=== PATIENT | male | born 1960 | race Caucasian/White ===

== ENCOUNTER 2018-05-01 09:30 | Inpatient (IN) ==
[2018-05-01] MEDS ORDERED: SODIUM CHLORIDE 0.9% 1,000 ML IV STA (10:05)
[2018-05-01] MEDS ORDERED: ONDANSETRON 4 MG/2 ML VIAL IV STA (10:05)
[2018-05-01 10:52] LABS: Basophils % 0.4 % (0.0-0.8); Eosinophils # 0.4 10*3/uL (0.0-0.87); Eosinophils % 4.6 % (0.00-10.9); Hematocrit 44.5 VOL% (42.0-52.0); Hemoglobin 14.7 GM/DL (14.0-18.0); Immature Granulocytes % 0.3 %; Immature Granulocytes Absolute 0.03 #; Lymphocytes # 2.3 10*3/uL (1.4-4.0); Lymphocytes % 23.6 % (21.2-54.2); Mean Corpuscular Hemoglobin 30 PG (27-34); Mean Corpuscular Volume 91.2 FL (87-102); Mean Platelet Volume 10.4 FL (9.6-12.0); Monocytes # 0.5 10*3/uL (0.11-0.8); Monocytes % 4.7 % (1.7-12.7); Neutrophils # 6.3 10*3/uL (1.4-7.4); Neutrophils % 66.4 % (38.7-73.9); Platelet Count 222 T/CUMM (130-400); Red Blood Count 4.88 MC/CUMM (3.8-5.5); White Blood Count 9.5 T/CUMM (4-12)
[2018-05-01 11:04] LABS: PT Patient Result 10.7 SECS; Partial Thromboplastin Time 27.5 SECS (0-40)
[2018-05-01 11:12] LABS: Alanine Aminotransferase 25 U/L (16-61); Albumin 3.5 G/DL (3.4-5.0); Alkaline Phosphatase 77 U/L (45-117); Aspartate Amino Transferase 24 U/L (0-37); Blood Urea Nitrogen 12 MG/DL (7-18); Glucose 139 MG/DL (74-106); Osmolality,Calculated 274.8 MOS/KG (273-304); Potassium 3.2 MMOL/L (3.5-5.1); Sodium 137 MMOL/L (136-145); Total Protein 7.1 G/DL (6.4-8.3)
[2018-05-01] MEDS ORDERED: POTASSIUM CHLORIDE 20 MEQ TABLET PO STA (11:28)
[2018-05-01] MEDS ORDERED: ASPIRIN CHEW 81 MG TABLET PO STA (11:40)
[2018-05-01] MEDS ORDERED: ACETAMINOPHEN 325 MG TABLET PO PRN (12:34)
[2018-05-01] MEDS ORDERED: ONDANSETRON 4 MG/2 ML VIAL IV PRN (12:34)
[2018-05-01] MEDS ORDERED: LABETALOL 20 MG/4 ML SYRINGE IV PRN (12:39)
[2018-05-01] MEDS ORDERED: ENOXAPARIN 30 MG/0.3 ML SYRINGE SUBCUT SCH (13:00)
[2018-05-01] MEDS ORDERED: PNEUMOCOCCAL VACCINE (23 VALENT) 0.5 ML VIAL IM ONE (13:29)
[2018-05-01 13:47] LABS: Cholesterol 114 MG/DL (50-200); HDL Cholesterol 23 MG/DL (40-60); Risk Ratio 4.96; Triglycerides 209 MG/DL (2-150); VLDL CHOLESTEROL 41.8 MG/DL
[2018-05-01] MEDS: POTASSIUM CHLORIDE 20 MEQ TABLET PO SCH ×2 (14:19→17:39)
[2018-05-01] MEDS: SODIUM CHLORIDE 0.9% 1,000 ML IV SCH ×2 (14:19→22:00)
[2018-05-01 15:45] LABS: Barbiturates Screen,Urine Negative (Negative); Benzodiazepines Screen,Urine Negative (Negative); Cannabinoid Screen,Urine Negative (Negative); Opiate Screen,Urine Negative (Negative); Phencyclidine Screen,Urine Negative (Negative)
[2018-05-01] MEDS ORDERED: ZALEPLON 5 MG CAPSULE PO PRN (20:13)
[2018-05-02] MEDS: SODIUM CHLORIDE 0.9% 1,000 ML IV SCH (05:57)
[2018-05-02 05:59] LABS: Basophils % 0.4 % (0.0-0.8); Eosinophils # 0.5 10*3/uL (0.0-0.87); Eosinophils % 6.3 % (0.00-10.9); Hematocrit 37.4 VOL% (42.0-52.0); Hemoglobin 12.3 GM/DL (14.0-18.0); Immature Granulocytes % 0.4 %; Immature Granulocytes Absolute 0.03 #; Lymphocytes # 2.4 10*3/uL (1.4-4.0); Lymphocytes % 29.5 % (21.2-54.2); Mean Corpuscular HGB Conc 32.9 GM/DL (32-36); Mean Corpuscular Hemoglobin 31 PG (27-34); Mean Corpuscular Volume 93.5 FL (87-102); Mean Platelet Volume 10.2 FL (9.6-12.0); Monocytes # 0.5 10*3/uL (0.11-0.8); Monocytes % 6.3 % (1.7-12.7); Neutrophils # 4.6 10*3/uL (1.4-7.4); Neutrophils % 57.1 % (38.7-73.9); Platelet Count 174 T/CUMM (130-400); Red Cell Distribution Width 13.2 % (9.3-17.3); White Blood Count 8.1 T/CUMM (4-12)
[2018-05-02 06:13] LABS: Calcium 7.8 MG/DL (8.5-10.1); Osmolality,Calculated 278.3 MOS/KG (273-304); Potassium 4.2 MMOL/L (3.5-5.1)
[2018-05-02] MEDS ORDERED: PANTOPRAZOLE 40 MG TABLET PO SCH (09:00)
[2018-05-02] MEDS ORDERED: CLOPIDOGREL 75 MG TABLET PO SCH (09:00)
[2018-05-02 12:19] VITALS: BP 132/74
== END 2018-05-02 16:25 | disposition home or self-care (01) | DRG 316 ==
LOC: N.ED 09:30 → SUATTDRO 11:40 → N.EDINP 11:40 → N.4E 12:23
PROVIDERS: ADMIT Internal Medicine Cardiovascular Disease; ATTEND Internal Medicine Nephrology

== ENCOUNTER 2021-08-25 04:25 | Observation (INO) ==
[2021-08-25 07:39] LABS: Alanine Aminotransferase 34 U/L (16-61); Albumin 2.9 G/DL (3.4-5.0); Alkaline Phosphatase 137 U/L (45-117); Aspartate Amino Transferase 91 U/L (0-37); Blood Urea Nitrogen 5 MG/DL (7-18); Calcium 8.9 MG/DL (8.5-10.1); Carbon Dioxide 29 MMOL/L (21-32); Estimated Glom Filtration Rate 101 ML/MIN; Glucose 110 MG/DL (74-106); Osmolality,Calculated 265.2 MOS/KG (273-304); Potassium 3.9 MMOL/L (3.5-5.1); Sodium 134 MMOL/L (136-145); Total Protein 6.6 G/DL (6.4-8.2)
[2021-08-25 08:33] LABS: Bilirubin,Urine Negative (Negative); Blood, Urine Negative (Negative); Glucose,Urine (UA) Negative (Negative); Hyaline Casts,Urine 8 /LPF (0-3); Ketones,Urine Negative (Negative); Mucus,Urine Many /LPF (Occasional); Nitrite,Urine Negative (Negative); Protein,Urine 30 MG/DL; RBC,Urine 2 /HPF (0-4); Urine Appearance CLEAR (Clear); Urine Color Amber (Yellow); Urine Specific Gravity 1.017 (1.001-1.035)
[2021-08-25 08:39] LABS: Basophils % 0.2 % (0.0-0.8); Eosinophils % 0.5 % (0.00-10.9); Hematocrit 43.1 VOL% (42.0-52.0); Hemoglobin 14.1 GM/DL (14.0-18.0); Immature Granulocytes % 0.3 %; Immature Granulocytes Absolute 0.03 #; Lymphocytes # 0.7 10*3/uL (1.4-4.0); Lymphocytes % 7.7 % (21.2-54.2); Mean Corpuscular HGB Conc 32.7 GM/DL (32-36); Mean Corpuscular Volume 101.2 FL (87-102); Monocytes % 5.5 % (1.7-12.7); Neutrophils % 85.8 % (38.7-73.9); Platelet Count 104 T/CUMM (130-400); Red Blood Count 4.26 MC/CUMM (3.8-5.5); Red Cell Distribution Width 13.4 % (9.3-17.3); White Blood Count 8.6 T/CUMM (4-12)
[2021-08-25 08:56] LABS: Barbiturates Screen,Urine Negative (Negative); Benzodiazepines Screen,Urine Negative (Negative); Cannabinoid Screen,Urine Negative (Negative); Opiate Screen,Urine Negative (Negative); Phencyclidine Screen,Urine Negative (Negative)
[2021-08-25 09:04] LABS: INR 1.2; PT Patient Result 12.7 SECS (10.5-12.0); Partial Thromboplastin Time 27.9 SECS (23.9-33.8)
[2021-08-25] MEDS ORDERED: ONDANSETRON 4 MG/2 ML VIAL IV PRN (09:42)
[2021-08-25] MEDS ORDERED: DEXTROSE 50% 25 GM/50 ML VIAL IV PRN (09:42)
[2021-08-25] MEDS ORDERED: GLUCAGON 1 MG VIAL IM PRN (09:42)
[2021-08-25] MEDS ORDERED: DOCUSATE SODIUM 100 MG CAPSULE PO PRN (09:42)
[2021-08-25] MEDS ORDERED: ALBUTEROL/IPRATROPIUM 3 ML NEB RESP TX PRN (09:42)
[2021-08-25] MEDS ORDERED: LABETALOL 20 MG/4 ML SYRINGE IV PRN (09:46)
[2021-08-25] MEDS ORDERED: LORazepam 2 MG/1 ML VIAL IV PRN (10:29)
[2021-08-25 10:44] LABS: Risk Ratio 7.55; Thyroid Stimulating Hormone 1.73 uIU/ml (0.358-3.74); VLDL Cholesterol 25.6 MG/DL
[2021-08-25] MEDS ORDERED: MIRTAZAPINE 15 MG TABLET PO SCH (21:00)
[2021-08-25] MEDS ORDERED: traZODone 50 MG TABLET PO SCH (21:00)
[2021-08-25] MEDS: APIXABAN 5 MG TABLET PO SCH (21:16)
[2021-08-25] MEDS: METOPROLOL TARTRATE 25 MG TABLET PO SCH (21:16)
[2021-08-26 05:59] LABS: Basophils % 0.3 % (0.0-0.8); Eosinophils # 0.2 10*3/uL (0.0-0.87); Eosinophils % 2.6 % (0.00-10.9); Hematocrit 36.7 VOL% (42.0-52.0); Hemoglobin 12.1 GM/DL (14.0-18.0); Immature Granulocytes % 0.3 %; Immature Granulocytes Absolute 0.02 #; Lymphocytes # 1.2 10*3/uL (1.4-4.0); Lymphocytes % 18.1 % (21.2-54.2); Mean Corpuscular Volume 100.5 FL (87-102); Mean Platelet Volume 10.5 FL (9.6-12.0); Monocytes % 6.5 % (1.7-12.7); Neutrophils % 72.2 % (38.7-73.9); Platelet Count 98 T/CUMM (130-400); Red Blood Count 3.65 MC/CUMM (3.8-5.5); White Blood Count 6.6 T/CUMM (4-12)
[2021-08-26 06:25] LABS: Hypochromasia 1+; Microcytosis 1+; Platelet Estimate Decreased
[2021-08-26 06:37] LABS: Albumin 2.5 G/DL (3.4-5.0); Bilirubin,Total 1.1 MG/DL (0.20-1.00); Calcium 8.4 MG/DL (8.5-10.1); Osmolality,Calculated 272.7 MOS/KG (273-304); Potassium 3.4 MMOL/L (3.5-5.1); Total Protein 5.7 G/DL (6.4-8.2)
[2021-08-26] MEDS ORDERED: ASPIRIN EC 81 MG TABLET PO SCH (09:00)
[2021-08-26] MEDS ORDERED: PANTOPRAZOLE 40 MG TABLET PO SCH (09:00)
[2021-08-26] MEDS ORDERED: ATORVASTATIN 80 MG TABLET PO SCH (09:00)
[2021-08-26] MEDS ORDERED: GABAPENTIN 300 MG CAPSULE PO SCH (09:00)
[2021-08-26] MEDS: METOPROLOL TARTRATE 25 MG TABLET PO SCH (09:40)
[2021-08-26] MEDS: APIXABAN 5 MG TABLET PO SCH (09:41)
[2021-08-26 14:02] VITALS: BP 138/92
== END 2021-08-26 11:47 | disposition home or self-care (01) ==
LOC: N.ED 04:25 → N.EDINP 04:25 → N.TELES 17:45
PROVIDERS: ADMIT Internal Medicine; ATTEND Internal Medicine